=== PATIENT | female | born 1955 | race Caucasian/White ===

== ENCOUNTER 2024-03-28 10:10 | Outpatient (AMB) | payer MEDICARE, SELFPAY ==
--- NOTE | 2024-03-28 10:11 | A.OFFVIS_ITS ---
Vital Signs 03/28/24 10:21 Height 5 ft 4 in Weight 230 lb BMI 39.5 Intake Visit Reasons: Nerve Pain/Charcot Foot Allergies atorvastatin Allergy (Unknown, Verified 03/28/24 11:12) Unknown carvedilol Allergy (Unknown, Verified 03/28/24 11:12) Unknown cyclobenzaprine Allergy (Unknown, Verified 03/28/24 10:20) Unknown lisinopril Allergy (Unknown, Verified 03/28/24 11:12) Unknown metronidazole Allergy (Unknown, Verified 03/28/24 11:12) Unknown mirabegron Allergy (Unknown, Verified 03/28/24 11:12) Unknown oxycodone Allergy (Unknown, Verified 03/28/24 11:12) Unknown pregabalin Allergy (Unknown, Verified 03/28/24 11:12) Unknown sulfamethoxazole [From Sulfamethoxazole-Trimethoprim] Allergy (Unknown, Verified 03/28/24 11:12) Unknown trimethoprim [From Sulfamethoxazole-Trimethoprim] Allergy (Unknown, Verified 03/28/24 11:12) Unknown valsartan Allergy (Unknown, Verified 03/28/24 11:12) Unknown HPI HPI Nerve Pain/Charcot Foot: Details: Patient is a 68-year-old female with prior history of diabetes mellitus with peripheral neuropathy and retinopathy, diabetic ulcer in chair good foot, osteomyelitis of ankle, recent right 4th toe amputation, morbid obesity, low back pain, opioid dependence and depression, presents today for initial evaluation of bilateral foot pain. She also reports chronic knee and low back pain. Patient recently moved to [place], [place] from [place]. She was previously followed at [facility] in [place] and reports she underwent multiple interventional treatments including nerve blocks, therapeutic injections and neuromodulation with [facility] SCS unilateral lead for right foot neuropathy and Charcot foot. Patient recently had right 4th toe amputation and has wound care through [facility]. Patient also reports her diabetes is not controlled and she is awaiting for fasting lab results from her PCP office. She is currently takes Lantus, Humalog, and metformin. Patient is not aware of her most recent A1C level. Patient reports she is here for medical management as she was prescribed controlled substances in [place] and [place]. She was on buttermilk drier operator opioid medications, including levorphanol 2 mg TID, tramadol 40 mg TID and gabapentin. I have informed patient that our office does not offer opioid prescribing at this time. We had long discussion today about alternative interventional treatments including potential to replace SCS to address low back and bilateral foot pain due to neuropathy and Charcot feet and and 8% topical capsaicin applications once her right foot wound is healed. Location: Bilateral feet, low back pain Duration: Chronic pain >14 years Characteristics of symptom or complaint: Aching, sharp, shooting, throbbing, stabbing, numbness, tingling Aggravating or associated factors: Weight-bearing, movements, walking, cold weather Relieving factors: Opioids, gabapentin, Tylenol Treatment: [facility] SCS-one lead, walker, wound care-right foot [facility] Medical History (Updated 03/29/24 @ 21:27 by RICHARD De León) Osteomyelitis of ankle Old myocardial infarction of ventricular septum Depression Low back pain Hypertension Hyperlipidemia Glaucoma GERD (gastroesophageal reflux disease) Diabetes mellitus with retinopathy Coronary artery disease Peripheral neuropathy Type 2 diabetes mellitus with ulcer Morbid obesity Opioid dependence Social History (Updated 03/28/24 @ 11:22 by Ani Moore) Alcohol intake: current Alcohol intake frequency: holidays/special occasions only Patient Tobacco Use Status: Former Tobacco user Tobacco use type: Cigarette Review of Systems Const All systems reviewed & are unremarkable except as noted in HPI and below Reports as per HPI, Denies body aches, Denies chills, Reports difficulty sleeping, Reports fatigue, Denies fever(s), Denies malaise, Denies night sweats and Denies weight loss Endo Reports fatigue Physical Exam Vital Signs: BMI result Body Mass Index 39.5 General: Appears afebrile. Alert and oriented. Mood and affect appropriate. Follows and participates in conversation appropriately. Respiratory effort is unlabored. No cough. Able to transition from sit to stand unassisted. Uses walker with ambulation. Back/Spine/Pelvis Cervical Spine: cervical muscular tenderness and No Cervical spine tenderness Thoracic/Lumbar Spine: thoracic and lumbar spine normal to inspection, Thoracic/lumbar spine scar(s), Lasegue's sign negative, straight leg raise negative bilaterally, pain with thoraco-lumbar ROM, thoraco-lumbar ROM limited, No thoracic spinal tenderness and lumbar spinal tenderness at L4 and at L5 Extrem Other: There is decreased sensation over the soles of the feet and the toes. Amputation right 4th toe. Dressing to right foot dry and intact. Mild soft tissue swelling dorsal aspect of the right foot and right lower leg. Mild redness noted to both bilateral lower legs. No calf tenderness. Pulses +2 throughout bilaterally. Charcot foot bilaterally. General: Yes capillary refill normal, Yes no calf tenderness and Yes edema (RLE +1, nonpitting LLE) Results Reviewed Results Reviewed: No imaging reports are available for review. Assessment & Plan Assessment & Plan (1) Opioid dependence: Code(s): F11.20 - Opioid dependence, uncomplicated Category: Medical (2) Peripheral neuropathy: Code(s): G62.9 - Polyneuropathy, unspecified Category: Medical (3) Low back pain: Code(s): M54.50 - Low back pain, unspecified Category: Medical (4) Bilateral foot pain: Code(s): M79.671 - Pain in right foot; M79.672 - Pain in left foot Category: Medical (5) Chronic pain syndrome: Code(s): G89.4 - Chronic pain syndrome Category: Medical Plan I have informed patient that our office does not offer opioid prescribing at this time. We had long discussion today about alternative interventional treatments including potential to replace SCS to address low back and bilateral foot pain due to neuropathy and Charcot feet and and 8% topical capsaicin applications once her right foot wound is healed. Informational pamphlets provided to patient. Medical release request sent to [facility] for past injections and procedures and PCP office for most recent labs, including most recent A1C level. All questions and concerns have been answered. Follow up as needed. Coding Level of Care Code New Pt Level 4 (94086) Diagnoses Opioid dependence F11.20 Peripheral neuropathy G62.9 Low back pain M54.50 Bilateral foot pain M79.671; M79.672 Chronic pain syndrome G89.4
[2024-03-28 10:21] VITALS: BMI 39.5
== END 2024-03-28 10:52 | disposition home or self-care (01) ==
PROVIDERS: PCP Nurse Practitioner Family; Visit Provider Nurse Practitioner Family
DX: G62.9 Polyneuropathy, unspecified (principal); M54.50 Low back pain, unspecified; M79.671 Pain in right foot; M79.672 Pain in left foot; G89.4 Chronic pain syndrome
CPT/HCPCS: 99204

== ENCOUNTER → 2024-03-28 10:10 | Outpatient (BNVA) | payer MEDICARE, SELFPAY | PROVIDERS: PCP Nurse Practitioner Family; Visit Provider Nurse Practitioner Family | DX: M54.50 Low back pain, unspecified (principal); M79.671 Pain in right foot; M79.672 Pain in left foot; G62.9 Polyneuropathy, unspecified; G89.4 Chronic pain syndrome; F11.20 Opioid dependence, uncomplicated | CPT/HCPCS: 99202 ==